=== PATIENT | female | born 1985 | race Caucasian/White ===

== ENCOUNTER 2016-05-22 08:41 | Emergency (ER) | payer OTHER ==
[~2016-05-22] VITALS: Ht 165.1 cm; Wt 75.0 kg
[~2016-05-22 08:41] MED LIST: ALPRAZOLAM; CIPRO 500MG TA500 MG PO; LORTAB 5/500 501 TAB PO; MULTIPLE VITAMI1 CAP PO; NUVARING1 ICR; PAXIL PO; SOLIA 0.15 MG-01 TAB PO; [UNRECOGNIZED DRUG - OTHER]
[2016-05-22 08:50] VITALS: BP 92/71; PULSE 71; TEMP 98.7
== END 2016-05-22 10:05 | disposition home or self-care (01) ==
LOC: COL.ER 08:41
DX: S90.32XA Contusion of left foot, initial encounter (principal); S90.812A Abrasion, left foot, initial encounter; W22.8XXA Striking against or struck by other objects, initial encounter